=== PATIENT | female | born 1960 | race African-American/Black ===

== ENCOUNTER 2023-01-02 14:24 | Outpatient (CLI) | payer OTHER | END 2023-01-02 14:25 | disposition home or self-care (01) | LOC: CSHULT 14:24 | PROVIDERS: ATTEND Internal Medicine | DX: I50.32 Chronic diastolic (congestive) heart failure (principal); R01.1 Cardiac murmur, unspecified; I51.7 Cardiomegaly ==

== ENCOUNTER 2023-02-14 05:48 | Day surgery (SDC) | payer OTHER ==
[2023-02-12 11:57] VITALS: BMI 36.8
[2023-02-14] MEDS ORDERED: PROPOFOL 40 ML ONE (07:49)
[2023-02-14] MEDS ORDERED: Lidocaine 1% PF 5 ML VIAL ONE (07:49)
== END 2023-02-14 09:44 | disposition home or self-care (01) ==
LOC: CSHSDC 05:48
PROVIDERS: ATTEND Internal Medicine Gastroenterology
PROC: 0DJD8ZZ Inspection of Lower Intestinal Tract, Via Natural or Artificial Opening Endoscopic (ICD-10-PCS; principal; 2023-02-14)
DX: Z12.11 Encounter for screening for malignant neoplasm of colon (principal); K57.30 Diverticulosis of large intestine without perforation or abscess without bleeding; I11.0 Hypertensive heart disease with heart failure; I50.30 Unspecified diastolic (congestive) heart failure; E66.9 Obesity, unspecified; E11.9 Type 2 diabetes mellitus without complications; F32.A Depression, unspecified; Z88.2 Allergy status to sulfonamides; K64.9 Unspecified hemorrhoids; Z79.899 Other long term (current) drug therapy; Z68.36 Body mass index [BMI] 36.0-36.9, adult
CPT/HCPCS: J2704

== ENCOUNTER 2024-11-02 13:56 | Outpatient (CLI) | payer OTHER | END 2024-11-02 13:57 | disposition home or self-care (01) | LOC: CSHMAMMO 13:56 | PROVIDERS: ATTEND Family Medicine | DX: Z12.31 Encounter for screening mammogram for malignant neoplasm of breast (principal); N64.89 Other specified disorders of breast; Z80.3 Family history of malignant neoplasm of breast | CPT/HCPCS: 77063; 77067 ==